=== PATIENT | female | born 1990 | race Caucasian/White ===

== ENCOUNTER 2022-09-29 13:43 | Emergency (ER) | payer MEDICAID ==
[~2022-09-29] VITALS: Ht 160 cm; Wt 63.0 kg
[2022-09-29 13:49] VITALS: BP 104/69
[2022-09-29] MEDS ORDERED: CETI-338 PO (15:38)
[2022-09-29] MEDS ORDERED: DIPHENHYDRAMINE 50MG/ML VIAL IM PRN (15:45)
== END 2022-09-29 16:02 | disposition home or self-care (01) ==
LOC: ER 13:43
DX: T78.40XA Allergy, unspecified, initial encounter (principal); X58.XXXA Exposure to other specified factors, initial encounter
CPT/HCPCS: 81025; 96372; 99283; J1200